=== PATIENT | male | born 1980 | race Caucasian/White ===

== ENCOUNTER 2020-04-05 20:34 | Emergency (ER) | payer OTHER ==
[~2020-04-05] VITALS: Ht 175.3 cm; Wt 99.8 kg
[2020-04-05 20:40] VITALS: BP_SYST 152
--- NOTE | 2020-04-05 21:00 | NUR ---
Placed in room 4 . Placed on desk monitor, blood pressure machine and pulse oximeter. To gown for exam. Side rails up. Report given to Dimple BURGESS.
--- NOTE | 2020-04-05 21:10 | NUR ---
PT BIB FROM HOME WITH C/O RUSSELL TO BACK OF HEAD AFTER UNWITNESSED FALL AT HOME WITH CONFUSION. STATES THE FALL HAPPENED AROUND 1930, SHORTLY AFTER REPORTS THAT HE WAS REPEATING HIMSELF AND STATING HE DIDN'T KNOW SHE WAS HIS OR THAT SHE WAS HOME. SHE REPORTS THAT HE HAS PLS WHICH CAUSES HIM TO BE UNSTEADY ON HIS FEET WITH OCCASSIONAL FALLS BUT NO HX OF FORGETFULNESS OR CONFUSION. PT AAOX3, V/S STABLE
--- NOTE | 2020-04-05 21:20 | NUR ---
EKG performed at by [facility]. Physician DR. ZAMORA given copy of EKG for review.
--- NOTE | 2020-04-05 21:38 | NUR ---
ER DR. ZAMORA AT THE BEDSIDE EVALUATING PT
--- NOTE | 2020-04-05 22:06 | NUR ---
Patient transported to radiology via WC, accompanied by STAFF.
[2020-04-05 22:17] LABS: BASOPHILS # (AUTO) 0.1 K/uL (0.0-0.2); BASOPHILS % (AUTO) 0.7 % (0.0-2.0); EOSINOPHILS # (AUTO) 0.3 K/uL (0.0-0.4); EOSINOPHILS % (AUTO) 2.8 % (0.0-4.0); HEMATOCRIT 47.8 % (36-54); HEMOGLOBIN 16.5 g/dL (14.0-18.0); LYMPHOCYTES # (AUTO) 1.5 K/uL (1.0-5.5); LYMPHOCYTES % (AUTO) 13.1 % (20.5-51.5); MEAN CORPUSCULAR HEMOGLOBIN 29 pg (27-31); MEAN CORPUSCULAR HGB CONC 34 % (32-36); MEAN CORPUSCULAR VOLUME 83 fL (79.0-98.0); MONOCYTES # (AUTO) 0.7 K/uL (0.0-1.0); MONOCYTES % (AUTO) 6.2 % (1.7-9.3); NEUTROPHILS # (AUTO) 8.9 K/uL (1.8-7.7); NEUTROPHILS % (AUTO) 77.2 % (40.0-70.0); PLATELET COUNT (AUTO) 308 K/uL (130-430); RED BLOOD CELL COUNT(AUTO) 5.76 MIL/uL (4.2-6.2); WHITE BLOOD COUNT (AUTO) 11.6 K/uL (4.8-10.8)
[2020-04-05 22:25] LABS: ANION GAP 9 (5-15); CALCIUM 8.6 mg/dL (8.4-11.0); CHLORIDE 107 mmol/L (98-107); CREATININE 1.04 mg/dL (0.55-1.30); GLUCOSE 114 mg/dL (70-99); SODIUM SERUM 143 mmol/L (136-145); UREA NITROGEN, BLOOD 15 mg/dL (8-21)
[2020-04-05] MEDS ORDERED: ACETAMINOPHEN 500 MG TABLET PO ONE (22:30)
[2020-04-05 22:31] LABS: ALANINE AMINOTRANSFERASE 24 U/L (12-78); ALBUMIN 3.8 g/dL (3.4-4.8); ASPARTATE AMINOTRANSFERASE 16 U/L (10-37); TOTAL BILIRUBIN 0.5 mg/dL (0.0-1.0)
[2020-04-05 22:32] LABS: ACETAMINOPHEN < 1 ug/mL (1-30); ALCOHOL, BLOOD < 3 mg/dL (<10); GFR AFRICAN AMERICAN 101 mL/min (>90)
--- NOTE | 2020-04-05 22:32 | NUR ---
PT PROVIDED WITH URINE CUP, STATES UNABLE TO VOID AT THIS TIME. WILL FOLLOW UP
--- NOTE | 2020-04-05 22:54 | NUR ---
PT ABLE TO VOID, SAMPLE COLLECTED AND SENT TO LAB
[2020-04-05 23:17] LABS: BARBITURATE, URINE NEGATIVE (NEG <=200); BENZODIAZEPINE, URINE POSITIVE (NEG <=150); CANNABINOID, URINE POSITIVE (NEG <=50); COCAINE, URINE NEGATIVE (NEG <=150); METHAMPHETAMINES SCREEN,URINE NEGATIVE (NEG <=500); OPIATE, URINE NEGATIVE (NEG <=100); PHENCYCLIDINE SCREEN,URINE NEGATIVE (NEG <=25); UR TRICYCLIC ANTIDEPRESSANTS NEGATIVE (NEG <=300); URINE AMPHETAMINE NEGATIVE (NEG <=500); URINE METHADONE NEGATIVE (NEG <=200); URINE OXYCODONE SCREEN NEGATIVE (NEG <=100); URINE PROPOXYPHENE SCREEN NEGATIVE (NEG <=300)
[2020-04-05 23:30] VITALS: BP_SYST 152
--- NOTE | 2020-04-05 23:30 | NUR ---
Patient given written and verbal discharge instructions and verbalizes understanding. ER MD discussed with patient the results and treatment provided. Patient in stable condition. ID arm band removed. Rx of TYLENOL given. Patient educated on pain management and to follow up with PMD. Pain Scale 0/10. Opportunity for questions provided and answered. Medication side effect fact sheet provided.
== END 2020-04-05 23:30 | disposition home or self-care (01) ==
LOC: SED 20:34
DX: S06.0X0A Concussion without loss of consciousness, initial encounter (principal); R03.0 Elevated blood-pressure reading, without diagnosis of hypertension; W22.8XXA Striking against or struck by other objects, initial encounter; Y93.89 Activity, other specified; Y92.89 Other specified places as the place of occurrence of the external cause; Y99.8 Other external cause status
CPT/HCPCS: 36415; 70450; 80053; 80307; 85025; 93005; 99285; G0480; G0481; G0482